=== PATIENT | male | born 2000 | race Two or more races ===

== ENCOUNTER 2020-11-13 07:51 | Emergency (ER) | payer BC ==
[~2020-11-13] VITALS: Ht 167.6 cm; Wt 66.2 kg
--- NOTE | 2020-11-13 09:13 | NUR ---
Pt walked back from lobby to room at this time. Assumed care of patient.
--- NOTE | 2020-11-13 09:28 | NUR ---
Pt steady upon ambulation to restroom and back to [facility]. Urine smaple obtained and sent to lab. ALONA Chan at bedside for eval. Pt c/o diffuse abd pain. Pt denies n/v/d. Pt reports occaisional burning on tip of penis. Denies discharge.
[2020-11-13] MEDS ORDERED: MAALOX/HYOSCYAMINE/LIDOCAINE 45 ML BTL PO ONE (09:30)
--- NOTE | 2020-11-13 09:36 | NUR ---
Report to DANAY Vora who assumed care of patient.
[2020-11-13] MEDS ORDERED: MAALOX/HYOSCYAMINE/LIDOCAINE 45 ML BTL ONE (10:00)
--- NOTE | 2020-11-13 10:16 | NUR ---
US AT BEDSIDE. PT LAYING FLAT ON BACK. NAD NOTED. GI COCKTAIL READY FOLLOWING US.
[2020-11-13 10:20] LABS: CHLORIDE 107 mmol/L (98-107)
[2020-11-13 10:21] LABS: BASOPHILS % (AUTO) 0 % (0-1); EOSINOPHILS % (AUTO) 2 % (1-7); LYMPHOCYTES % (AUTO) 27 % (22-44); MEAN CORPUSCULAR HEMOGLOBIN 29.3 pg (27.5-34.5); MEAN CORPUSCULAR HGB CONC 33.8 g/dL (33.2-36.2); MEAN PLATELET VOLUME 8.2 fL (7.4-10.4); MONOCYTES % (AUTO) 7 % (2-9); NEUTROPHILS % (AUTO) 64 % (42-75); PLATELET COUNT 179 x10^3/uL (130-400); RED BLOOD COUNT 5.17 x10^6/uL (4.38-5.82); RED CELL DISTRIBUTION WIDTH 13.8 % (9.4-14.8)
[2020-11-13 10:24] LABS: MICROSCOPIC NOT IND
[2020-11-13 10:25] LABS: ALANINE AMINOTRANSFERASE 27 U/L (12-78); ALBUMIN 4.3 g/dL (3.4-5.0); ALKALINE PHOSPHATASE 51 U/L (45-117); ANION GAP 4 mmol/L (5-15); BILIRUBIN,TOTAL 1.6 mg/dL (0.2-1.0); CALCIUM 9.9 mg/dL (8.5-10.1); CREATININE 0.97 mg/dL (0.7-1.3); TOTAL PROTEIN 7.4 g/dL (6.4-8.2)
[2020-11-13 11:38] VITALS: BP 112/76
== END 2020-11-13 11:50 | disposition home or self-care (01) ==
LOC: ED 11:30
DX: R10.11 Right upper quadrant pain (principal); R10.13 Epigastric pain
CPT/HCPCS: 36415; 76700; 80053; 81003; 83690; 85025; 99284